=== PATIENT | male | born 1945 | race Hispanic/Latino ===

== ENCOUNTER 2022-02-18 13:57 | Inpatient (IN) | payer MEDICARE ==
[~2022-02-18] VITALS: Ht 170.2 cm; Wt 81.7 kg
[2022-02-18] MEDS ORDERED: SODIUM CHLORIDE 0.9% 1000ML 1,000 ML IV ONE (15:30)
[2022-02-18 15:38] LABS: HEMATOCRIT 24.9 % (38.2-49.6); HEMOGLOBIN 7.8 g/dL (14.0-18.0); LYMPHOCYTES # (AUTO) 0.4 (1.0-3.2); LYMPHOCYTES % 23.1 % (18.0-39.1); MEAN CORPUSCULAR HEMOGLOBIN 30.2 pg (28-32); MEAN CORPUSCULAR HGB CONC 31.3 g/dL (31-35); MEAN CORPUSCULAR VOLUME 96.5 fL (81-99); MONOCYTES # (AUTO) 0.7 (0.2-0.8); MONOCYTES % 35.7 % (4.4-11.3); NEUTROPHILS # (AUTO) 0.6 (2.1-6.9); NEUTROPHILS % 34.6 % (38.7-80.0); PLATELET COUNT 105 x10e3/uL (140-360); RED BLOOD COUNT 2.58 x10e6/uL (4.3-5.7); RED CELL DISTRIBUTION WIDTH 18.1 % (11.7-14.4)
[2022-02-18 15:56] LABS: ALBUMIN 1.6 g/dL (3.5-5.0); ALBUMIN/GLOBULIN RATIO 0.3 (0.8-2.0); ANION GAP 19.9 mmol/L (8-16); CALCIUM 7.5 mg/dL (8.4-10.2); CREATININE, SERUM 1.59 mg/dL (0.72-1.25)
[2022-02-18 16:03] LABS: POTASSIUM 2.9 mmol/L (3.5-5.1)
[2022-02-18 16:08] LABS: LYMPHOCYTES % (MANUAL) 20 % (19-48); MONOCYTES % (MANUAL) 45 % (3.4-9.0); MYELOCYTES % (MANUAL) 3 % (0-0); NEUTROPHILS % (MANUAL) 32 % (40-74)
[2022-02-18 16:09] LABS: PLATELET ESTIMATE SLIGHTLY DECREASED; PLATELET MORPHOLOGY COMMENT NORMAL; RBC MORPHOLOGY COMMENT NORMAL
[2022-02-18 16:18] LABS: HIV 1&2 AB SCREEN NON-REACTIVE (NONREACTIVE)
[2022-02-18] MEDS ORDERED: ONDANSETRON HCL INJ 2MG/ML 2ML 2 MG/ML VIAL IV PRN ×2 (16:30→19:30)
[2022-02-18] MEDS: SODIUM CHLORIDE 0.9% 1000ML 1,000 ML IV SCH ×2 (16:58→22:46)
[2022-02-18] MEDS: POTASSIUM CHLORIDE 10MEQ/100ML 100 ML IV SCH ×3 (16:59→21:40)
[2022-02-18] MEDS ORDERED: SODIUM CHLORIDE 0.9% 1000ML 500 ML IV ONE (17:00)
[2022-02-18] MEDS ORDERED: MELATONIN 3 MG TAB PO PRN (19:30)
[2022-02-18] MEDS ORDERED: GUAIFENESIN/DEXTROMETHORPHAN LIQD 5 ML UDC PO PRN (19:30)
[2022-02-18] MEDS ORDERED: MAGNESIUM SULF 1GRAM/DEXTROSE 100 ML IV ONE (19:30)
[2022-02-18] MEDS ORDERED: HYDRALAZINE HCL 20 MG/ML VIAL IV PRN (19:30)
[2022-02-18] MEDS ORDERED: ACETAMINOPHEN 325 MG TAB PO PRN (19:30)
[2022-02-18] MEDS ORDERED: MAGNESIUM/ALUMINUM/SIMETHICONE 30 ML UDC PO PRN (19:30)
[2022-02-18 20:15] LABS: CLARITY,URINE CLEAR (CLEAR); COLOR,URINE YELLOW (YELLOW); LEUKOCYTE ESTERASE ,URINE NEGATIVE (NEGATIVE); NITRITE,URINE NEGATIVE (NEGATIVE); PROTEIN,URINE DIPSTICK TRACE (NEGATIVE)
[2022-02-18 20:16] LABS: KETONES,URINE NEGATIVE (NEGATIVE); URINE UROBILINOGEN 0.2 mg/dL (0.2 - 1)
[2022-02-18 20:21] LABS: BACTERIA,URINE MODERATE /HPF; EPITHELIAL CELLS,URINE FEW /LPF; WBC,URINE (MAN) 21-50 /HPF (0-5)
[2022-02-18 20:22] LABS: HYALINE CASTS 0-1 (0-1); RBC,URINE 0-5 /HPF (0-5)
[2022-02-18 20:30] VITALS: BP 103/86
[2022-02-18 21:00] VITALS: BP 97/49
[2022-02-18 21:19] LABS: MAGNESIUM 1.6 MG/DL (1.3-2.1)
[2022-02-18 21:40] LABS: THYROID STIMULATING HORMONE 4.894 uIU/mL (0.350-4.940)
[2022-02-18 22:00] VITALS: BP 99/46
[2022-02-18 23:00] VITALS: BP 92/42
[2022-02-18 23:24] VITALS: BP 92/42
[2022-02-19] VITALS (24 sets, daily range): BP systolic 64–128; BP diastolic 42–65
[2022-02-19 06:48] LABS: HEMATOCRIT 22.4 % (38.2-49.6); LYMPHOCYTES # (AUTO) 0.4 (1.0-3.2); LYMPHOCYTES % 19.6 % (18.0-39.1); MEAN CORPUSCULAR HEMOGLOBIN 29.4 pg (28-32); MEAN CORPUSCULAR HGB CONC 31.3 g/dL (31-35); MEAN CORPUSCULAR VOLUME 94.1 fL (81-99); MONOCYTES # (AUTO) 0.7 (0.2-0.8); NEUTROPHILS # (AUTO) 0.7 (2.1-6.9); PLATELET COUNT 89 x10e3/uL (140-360); RED BLOOD COUNT 2.38 x10e6/uL (4.3-5.7); RED CELL DISTRIBUTION WIDTH 18.3 % (11.7-14.4)
[2022-02-19 07:13] LABS: ALBUMIN 1.2 g/dL (3.5-5.0); ALBUMIN/GLOBULIN RATIO 0.2 (0.8-2.0); ANION GAP 13.7 mmol/L (8-16); CREATININE, SERUM 1.04 mg/dL (0.72-1.25)
[2022-02-19 07:21] LABS: CALCIUM 6.5 mg/dL (8.4-10.2); POTASSIUM 2.7 mmol/L (3.5-5.1)
[2022-02-19] MEDS: SODIUM CHLORIDE 0.9% 1000ML 1,000 ML IV SCH (07:31)
[2022-02-19] MEDS: POTASSIUM CHLORIDE 20MEQ/100ML 100 ML IV SCH ×2 (08:29→10:21)
[2022-02-19] MEDS: MULTIVITAMINS/MINERALS TAB PO SCH (09:00)
[2022-02-19] MEDS: IRON SUCROSE 100 MG in SODIUM CHLORIDE 0.9% 100 ML IV SCH (09:23)
[2022-02-19] MEDS ORDERED: LACTATED RINGER'S 1,000 ML INJ ONE (13:30)
[2022-02-19] MEDS: FILGRASTIM 300 MCG/ML VIAL SC SCH (19:27)
[2022-02-20] VITALS (44 sets, daily range): BP systolic 75–127; BP diastolic 28–104
[2022-02-20] MEDS ORDERED: LACTATED RINGER'S 1,000 ML INJ SCH (04:00)
[2022-02-20 06:49] LABS: BASOPHILS % 0.3 % (0.0-1.0); LYMPHOCYTES # (AUTO) 0.6 (1.0-3.2); LYMPHOCYTES % 18.6 % (18.0-39.1); MEAN CORPUSCULAR HEMOGLOBIN 30.2 pg (28-32); MEAN CORPUSCULAR VOLUME 97.6 fL (81-99); MONOCYTES % 33.1 % (4.4-11.3); NEUTROPHILS # (AUTO) 1.1 (2.1-6.9); NEUTROPHILS % 38.2 % (38.7-80.0); PLATELET COUNT 69 x10e3/uL (140-360); RED BLOOD COUNT 2.05 x10e6/uL (4.3-5.7); RED CELL DISTRIBUTION WIDTH 18.5 % (11.7-14.4)
[2022-02-20 06:54] LABS: HEMOGLOBIN 6.2 g/dL (14.0-18.0)
[2022-02-20 08:01] LABS: ALBUMIN 1.1 g/dL (3.5-5.0); ALBUMIN/GLOBULIN RATIO 0.2 (0.8-2.0); ANION GAP 14.7 mmol/L (8-16); CREATININE, SERUM 0.84 mg/dL (0.72-1.25)
[2022-02-20 08:09] LABS: CALCIUM 6.9 mg/dL (8.4-10.2); POTASSIUM 2.7 mmol/L (3.5-5.1)
[2022-02-20 08:17] LABS: BAND NEUTROPHILS % (MANUAL) 5 %; LYMPHOCYTES % (MANUAL) 5 % (19-48); METAMYELOCYTES % (MANUAL) 7 % (0-0); MONOCYTES % (MANUAL) 24 % (3.4-9.0); MYELOCYTES % (MANUAL) 9 % (0-0); NEUTROPHILS % (MANUAL) 47 % (40-74); NUCLEATED RED BLOOD CELLS 2
[2022-02-20] MEDS ORDERED: ACETAMINOPHEN 325 MG TAB PO STA (08:18)
[2022-02-20 08:26] LABS: ANISOCYTOSIS SLIGHT; PLATELET ESTIMATE MODERATELY DECREASED
[2022-02-20] MEDS ORDERED: SODIUM CHLORIDE 0.9% 250ML 250 ML IV ONE (08:30)
[2022-02-20 09:18] LABS: INR 1.57; PROTHROMBIN TIME 20.1 seconds (11.9-14.5)
[2022-02-20 09:19] LABS: PARTIAL THROMBOPLASTIN TIME 50.3 seconds (23.8-35.5)
[2022-02-20] MEDS: MULTIVITAMINS/MINERALS TAB PO SCH (09:28)
[2022-02-20] MEDS: IRON SUCROSE 100 MG in SODIUM CHLORIDE 0.9% 100 ML IV SCH (09:28)
[2022-02-20] MEDS: POTASSIUM CHLORIDE 20MEQ/100ML 100 ML IV SCH ×4 (09:38→22:49)
[2022-02-20] MEDS ORDERED: SODIUM CHLORIDE 0.9% 250ML 250 ML ONE ×3 (12:05→21:25)
[2022-02-20] MEDS: FILGRASTIM 300 MCG/ML VIAL SC SCH (17:28)
[2022-02-20] MEDS ORDERED: FUROSEMIDE INJ 10 MG/ML 4 ML VIAL IV ONE (19:20)
[2022-02-21] VITALS (27 sets, daily range): BP systolic 76–122; BP diastolic 51–79
[2022-02-21 06:51] LABS: BASOPHILS % 0.3 % (0.0-1.0); HEMATOCRIT 23.9 % (38.2-49.6); HEMOGLOBIN 7.7 g/dL (14.0-18.0); LYMPHOCYTES # (AUTO) 1.1 (1.0-3.2); LYMPHOCYTES % 28.6 % (18.0-39.1); MEAN CORPUSCULAR HEMOGLOBIN 30.1 pg (28-32); MEAN CORPUSCULAR HGB CONC 32.2 g/dL (31-35); MEAN CORPUSCULAR VOLUME 93.4 fL (81-99); MONOCYTES # (AUTO) 0.7 (0.2-0.8); MONOCYTES % 16.9 % (4.4-11.3); NEUTROPHILS # (AUTO) 1.6 (2.1-6.9); PLATELET COUNT 53 x10e3/uL (140-360); RED BLOOD COUNT 2.56 x10e6/uL (4.3-5.7); RED CELL DISTRIBUTION WIDTH 17.2 % (11.7-14.4)
[2022-02-21] MEDS ORDERED: IOPAMIDOL 300MG/ML 100 ML INFUS..BTL IV ONE (07:15)
[2022-02-21 07:16] LABS: ALBUMIN 1.1 g/dL (3.5-5.0); ALBUMIN/GLOBULIN RATIO 0.2 (0.8-2.0); ANION GAP 15.1 mmol/L (8-16); CREATININE, SERUM 0.77 mg/dL (0.72-1.25); POTASSIUM 3.1 mmol/L (3.5-5.1)
[2022-02-21 07:17] LABS: CALCIUM 6.9 mg/dL (8.4-10.2)
[2022-02-21 08:46] LABS: BAND NEUTROPHILS % (MANUAL) 2 %; BLAST CELLS % MANUAL 1; LYMPHOCYTES % (MANUAL) 15 % (19-48); METAMYELOCYTES % (MANUAL) 1 % (0-0); MONOCYTES % (MANUAL) 29 % (3.4-9.0); MYELOCYTES % (MANUAL) 3 % (0-0); NEUTROPHILS % (MANUAL) 49 % (40-74); PLATELET ESTIMATE MODERATELY DECREASED; PLATELET MORPHOLOGY COMMENT NORMAL; RBC MORPHOLOGY COMMENT NORMAL
[2022-02-21] MEDS: LEVALBUTEROL HCL SOLN NEBU 0.63 MG/3 ML NEB INH PRN ×3 (09:10→22:20)
[2022-02-21] MEDS: MULTIVITAMINS/MINERALS TAB PO SCH (09:14)
[2022-02-21] MEDS: IRON SUCROSE 100 MG in SODIUM CHLORIDE 0.9% 100 ML IV SCH (09:15)
[2022-02-21] MEDS ORDERED: FUROSEMIDE INJ 10 MG/ML 4 ML VIAL IV ONE (09:30)
[2022-02-21] MEDS ORDERED: POTASSIUM CHLORIDE 20 MEQ TAB CR PO ONE ×2 (09:30→18:00)
[2022-02-21] MEDS: FILGRASTIM 300 MCG/ML VIAL SC SCH (09:37)
[2022-02-21] MEDS ORDERED: CEFTRIAXONE 1 GM VIAL ONE (17:25)
[2022-02-21] MEDS ORDERED: SODIUM CHLORIDE 0.9% 250ML 250 ML ONE (21:01)
[2022-02-22] VITALS (16 sets, daily range): BP systolic 89–109; BP diastolic 50–77
[2022-02-22 07:24] LABS: BASOPHILS % 0.2 % (0.0-1.0); HEMATOCRIT 21.4 % (38.2-49.6); LYMPHOCYTES # (AUTO) 0.5 (1.0-3.2); LYMPHOCYTES % 10.5 % (18.0-39.1); MEAN CORPUSCULAR HGB CONC 31.8 g/dL (31-35); MEAN CORPUSCULAR VOLUME 94.3 fL (81-99); MONOCYTES # (AUTO) 1.8 (0.2-0.8); MONOCYTES % 40.7 % (4.4-11.3); NEUTROPHILS # (AUTO) 1.6 (2.1-6.9); NEUTROPHILS % 36.5 % (38.7-80.0); RED BLOOD COUNT 2.27 x10e6/uL (4.3-5.7); RED CELL DISTRIBUTION WIDTH 17.7 % (11.7-14.4)
[2022-02-22 07:30] LABS: HEMOGLOBIN 6.8 g/dL (14.0-18.0); PLATELET COUNT 44 x10e3/uL (140-360)
[2022-02-22] MEDS: LEVALBUTEROL HCL SOLN NEBU 0.63 MG/3 ML NEB INH PRN (07:30)
[2022-02-22 07:34] LABS: ALBUMIN 1.1 g/dL (3.5-5.0); ALBUMIN/GLOBULIN RATIO 0.2 (0.8-2.0); ANION GAP 15.7 mmol/L (8-16); CREATININE, SERUM 0.87 mg/dL (0.72-1.25); POTASSIUM 3.7 mmol/L (3.5-5.1)
[2022-02-22 07:35] LABS: CALCIUM 6.9 mg/dL (8.4-10.2)
[2022-02-22 08:45] LABS: BAND NEUTROPHILS % (MANUAL) 3 %; BLAST CELLS % MANUAL 1; LYMPHOCYTES % (MANUAL) 11 % (19-48); MONOCYTES % (MANUAL) 28 % (3.4-9.0); MYELOCYTES % (MANUAL) 1 % (0-0); NEUTROPHILS % (MANUAL) 56 % (40-74); NUCLEATED RED BLOOD CELLS 6
[2022-02-22 08:46] LABS: PLATELET ESTIMATE MARKEDLY DECREASED; PLATELET MORPHOLOGY COMMENT NORMAL; RBC MORPHOLOGY COMMENT NORMAL
[2022-02-22] MEDS: IRON SUCROSE 100 MG in SODIUM CHLORIDE 0.9% 100 ML IV SCH (08:49)
[2022-02-22] MEDS: MULTIVITAMINS/MINERALS TAB PO SCH (08:49)
[2022-02-22] MEDS: FILGRASTIM 300 MCG/ML VIAL SC SCH (10:00)
[2022-02-22] MEDS ORDERED: SODIUM CHLORIDE 0.9% 250ML 250 ML IV ONE (10:30)
[2022-02-22] MEDS ORDERED: FUROSEMIDE INJ 10 MG/ML 4 ML VIAL IV ONE ×2 (10:30→12:45)
[2022-02-22] MEDS ORDERED: METHYLPREDNISOLONE SOD SUCC 125 MG/2ML VIAL IV ONE (12:30)
[2022-02-22] MEDS ORDERED: SODIUM CHLORIDE 0.9% 250ML 250 ML ONE (13:57)
[2022-02-22 19:28] LABS: HIV 1&2 AB SCREEN NON-REACTIVE (NONREACTIVE)
[2022-02-22] MEDS ORDERED: IOPAMIDOL 370 MG/ML 100 ML INFUS..BTL INJ ONE ×2 (22:27→22:30)
[2022-02-23] VITALS (7 sets, daily range): BP systolic 92–106; BP diastolic 53–72
[2022-02-23] MEDS ORDERED: PHYTONADIONE 10 MG/ML AMP IV ONE (02:15)
[2022-02-23] MEDS ORDERED: SODIUM CHLORIDE 0.9% 250ML 250 ML ONE ×2 (02:44→03:11)
[2022-02-23] MEDS ORDERED: SODIUM CHLORIDE 0.9% 250ML 250 ML IV ONE (03:15)
[2022-02-23 03:21] LABS: HEMATOCRIT 21.5 % (38.2-49.6)
== END 2022-02-23 05:00 | disposition short-term general hospital (02) | DRG 871 ==
LOC: ER 14:09 → EDBD 14:09 → ERHOLD 16:27 → ICU 20:18
PROVIDERS: ADMIT Internal Medicine; ATTEND Internal Medicine
PROC: 3E03329 Introduction of Other Anti-infective into Peripheral Vein, Percutaneous Approach (ICD-10-PCS; 2022-02-18)
PROC: 02HV33Z Insertion of Infusion Device into Superior Vena Cava, Percutaneous Approach (ICD-10-PCS; principal; 2022-02-20)
PROC: 30243N1 Transfusion of Nonautologous Red Blood Cells into Central Vein, Percutaneous Approach (ICD-10-PCS; 2022-02-20)
PROC: 30243L1 Transfusion of Nonautologous Fresh Plasma into Central Vein, Percutaneous Approach (ICD-10-PCS; 2022-02-23)
PROC: 30243K1 Transfusion of Nonautologous Frozen Plasma into Central Vein, Percutaneous Approach (ICD-10-PCS; 2022-02-23)
DX: A41.9 Sepsis, unspecified organism (principal); I50.33 Acute on chronic diastolic (congestive) heart failure; J18.9 Pneumonia, unspecified organism; R65.21 Severe sepsis with septic shock; D61.818 Other pancytopenia; N17.9 Acute kidney failure, unspecified; J91.8 Pleural effusion in other conditions classified elsewhere; E44.1 Mild protein-calorie malnutrition; C09.0 Malignant neoplasm of tonsillar fossa; D70.9 Neutropenia, unspecified; D89.0 Polyclonal hypergammaglobulinemia; I11.0 Hypertensive heart disease with heart failure; K74.60 Unspecified cirrhosis of liver; K76.0 Fatty (change of) liver, not elsewhere classified; D46.9 Myelodysplastic syndrome, unspecified; R13.10 Dysphagia, unspecified; R49.0 Dysphonia; E83.42 Hypomagnesemia; E87.6 Hypokalemia; E83.51 Hypocalcemia; Z87.891 Personal history of nicotine dependence; F10.21 Alcohol dependence, in remission; Z20.822 Contact with and (suspected) exposure to COVID-19; Z28.310 Unvaccinated for COVID-19; Z68.26 Body mass index [BMI] 26.0-26.9, adult
CPT/HCPCS: 0223U; 36415; 36569; 70491; 71045; 71260; 74174; 74230; 76700; 80053; 81001; 82140; 82270; 82378; 82607; 82746; 82784; 83540; 83605; 83615; 83690; 83735; 83880; 84100; 84443; 84466; 85014; 85018; 85025; 85045; 85384; 85610; 85651; 85730; 86039; 86140; 86592; 86850; 86900; 86920; 87040; 87086; 87116; 87390; 88184; 93005; 93306; 94640; 94799; 96361; 99251; 99284; G0433; G0435; J0456; J0696; J1442; J1756; J1940; J2930; J3430; J3475; J3480; J7030; J7050; J7121; P9016; P9017; Q9967